=== PATIENT | male | born 2000 | race Caucasian/White ===

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

== ENCOUNTER 2020-09-16 20:57 | Emergency (ER) | payer OTHER ==
[~2020-09-16] VITALS: Ht 185.4 cm; Wt 87.2 kg
[2020-09-17] MEDS ORDERED: ELIM5CRE2 TOP (00:15)
[2020-09-17] MEDS ORDERED: BACT800T5 PO (00:15)
[2020-09-17] MEDS: BACTRIM 160MG/800MG DS TAB PO ONE (00:50)
[2020-09-17] MEDS: PERMETHRIN 5% CREAM 60 GM TOP STA (00:53)
[2020-09-17 01:03] VITALS: BP 134/72
== END 2020-09-17 01:02 | disposition home or self-care (01) ==
LOC: M ED 20:57
DX: B86 Scabies (principal); F17.200 Nicotine dependence, unspecified, uncomplicated

== ENCOUNTER 2021-07-07 14:59 | Emergency (ER) | payer OTHER ==
[~2021-07-07] VITALS: Ht 185.4 cm; Wt 97.8 kg
[~2021-07-07 14:59] MED LIST: BACT800T5 PO; ELIM5CRE2 TOP
[2021-07-07 15:00] VITALS: BP 131/67
== END 2021-07-07 16:33 | disposition left against medical advice (07) ==
LOC: M ED 14:59
DX: Z53.21 Procedure and treatment not carried out due to patient leaving prior to being seen by health care provider (principal)

== ENCOUNTER 2023-02-06 16:19 | Emergency (ER) | payer OTHER ==
[~2023-02-06] VITALS: Ht 185.4 cm; Wt 100.7 kg
[2023-02-06 16:20] VITALS: BP 144/90
== END 2023-02-06 17:11 | disposition home or self-care (01) ==
LOC: M ED 16:19
DX: S00.01XA Abrasion of scalp, initial encounter (principal); W22.09XA Striking against other stationary object, initial encounter; Y92.019 Unspecified place in single-family (private) house as the place of occurrence of the external cause; Y93.89 Activity, other specified; Y99.8 Other external cause status